=== PATIENT | female | born 1950 | race Caucasian/White ===

== ENCOUNTER 2018-04-19 17:10 | Outpatient (REF) | payer MEDICARE, OTHER, SELFPAY ==
--- NOTE | 2018-04-19 15:00 | PAPFT_PTH ---
PATIENT: Krystal Castaneda LOC: [facility] U#:[id number] AGE/SX: 67/F ROOM: RE04/19/[address]: YAMIL VazquezP : 1950 BED: DIS: 04/19/2018 SPEC #: [id number] RECD: 04/19/18 17:32 STATUS: MELONY REQ #: [id number] IVONE: 04/19/18 15:[address]: Antonia Cruz DEPT: [facility] Cytology RECD BY: Chasity Tirado ENTERED: 04/19/18 17:33 SP TYPE: PAPFT OTHR DR: Ramses Chamorro Tissues: 1 - CX/ENDOCX FOR PAP SMEARS Procedures: PAP THIN PREP/[facility] Screening HPV DNA PROBE Comments: [id number]
== END 2018-04-19 17:30 ==
LOC: LBN 17:10
PROVIDERS: PCP Physician Assistant Medical; Visit Provider Nurse Practitioner Family
DX: Z12.4 Encounter for screening for malignant neoplasm of cervix (principal); Z11.51 Encounter for screening for human papillomavirus (HPV)
CPT/HCPCS: 88142; 87624

== ENCOUNTER 2024-06-14 01:57 | Outpatient (CLI) | payer MEDICARE, SELFPAY ==
--- NOTE | 2024-06-14 07:30 | DI.RAD_ITS ---
Exam(s) XR FOOT RT COMPLETE EXAM: XR FOOT RT COMPLETE CLINICAL HISTORY: Right foot pain,M79.671. TECHNIQUE: 2D digital imaging was performed. COMPARISON: No exams were available for comparison FINDINGS: 3 views No evidence of acute fracture or diastasis of the Lisfranc joint. No pes planus. There is significant hallux valgus. No obvious narrowing of the great toe metatarsophalangeal joint. Other MTP joints appear unremarkable as do the tarsometatarsal joints and other foot articulations. There is no inferior calcaneal spur. IMPRESSION: Hallux valgus. DATA REPOSITORY: RADIATION DOSE DELIVERED:
== END 2024-06-14 02:17 ==
LOC: DI 01:57
PROVIDERS: PCP Family Medicine; Visit Provider Podiatrist
DX: M79.671 Pain in right foot (principal)
CPT/HCPCS: 73630

== ENCOUNTER → 2024-10-18 14:44 | Outpatient (BNVA) | payer MEDICARE, SELFPAY | PROVIDERS: PCP Family Medicine; Referring Provider Family Medicine; Visit Provider Podiatrist | DX: M79.671 Pain in right foot (principal); M79.672 Pain in left foot; M21.611 Bunion of right foot; M21.612 Bunion of left foot; M20.5X1 Other deformities of toe(s) (acquired), right foot; B35.1 Tinea unguium | CPT/HCPCS: 99213 ==